=== PATIENT | male | born 1970 | race African-American/Black ===

== ENCOUNTER 2020-01-15 10:39 | Emergency (ER) | payer SELFPAY ==
[2020-01-15] MEDS ORDERED: Lidocaine 1% w/Epinephrine 1:100K 20 ML VIAL ONE (12:00)
== END 2020-01-15 12:27 | disposition home or self-care (01) ==
LOC: ERS 10:39
DX: L72.3 Sebaceous cyst (principal); F17.220 Nicotine dependence, chewing tobacco, uncomplicated; Z79.4 Long term (current) use of insulin
CPT/HCPCS: 10061

== ENCOUNTER 2020-02-02 08:37 | Emergency (ER) | payer SELFPAY ==
[2020-02-02] MEDS ORDERED: Bupivacaine 0.5% 10 ML VIAL ONE (09:10)
== END 2020-02-02 10:06 | disposition home or self-care (01) ==
LOC: ERS 08:37
DX: L03.012 Cellulitis of left finger (principal); E10.9 Type 1 diabetes mellitus without complications; F17.220 Nicotine dependence, chewing tobacco, uncomplicated
CPT/HCPCS: 99283; J3490

== ENCOUNTER 2021-04-24 18:02 | Emergency (ER) | payer SELFPAY | END 2021-04-24 19:46 | disposition home or self-care (01) | LOC: ERS 18:02 | DX: T65.91XA Toxic effect of unspecified substance, accidental (unintentional), initial encounter (principal); H57.89 Other specified disorders of eye and adnexa; E10.9 Type 1 diabetes mellitus without complications; F17.220 Nicotine dependence, chewing tobacco, uncomplicated; Z79.4 Long term (current) use of insulin | CPT/HCPCS: 99283 ==

== ENCOUNTER 2022-08-22 14:07 | Emergency (ER) | payer SELFPAY | END 2022-08-22 15:28 | disposition home or self-care (01) | LOC: ERS 14:07 | DX: L01.00 Impetigo, unspecified (principal); E10.9 Type 1 diabetes mellitus without complications; F17.220 Nicotine dependence, chewing tobacco, uncomplicated | CPT/HCPCS: 99282 ==

== ENCOUNTER 2024-01-05 23:19 | Emergency (ER) | payer SELFPAY ==
[2024-01-06 00:42] LABS: #Basophils 0.03 10x3/uL (0.0-0.2); %Basophils 0.3 % (0.0-1.0); %Eosinophils 0.9 % (0.0-10.0); %Lymphocytes 16.1 % (21.0-51.0); %Monocytes 8.7 % (0.0-10.0); %Neutrophils 73.7 % (42.0-75.0); Hematocrit 39.4 % (42.0-52.0); Hemoglobin 12.7 g/dL (14.0-18.0); Mean Corpuscular HGB CONC 32.2 g/dL (32.0-36.0); Mean Corpuscular Hemoglobin 28.9 pg (27.0-31.0); Mean Corpuscular Volume 89.5 fL (78.0-98.0); Mean Platelet Volume 10.5 fL (7.4-10.4); Platelet Count 280 10x3/uL (130-400); RBC Distribution Width 15.4 % (11.5-14.5)
[2024-01-06 01:05] LABS: Albumin 3.9 g/dL (3.5-5.0)
[2024-01-06 01:07] LABS: Calcium 9.5 mg/dL (7.8-10.44); Chloride 111 mmol/L (98-107); Potassium 4.4 mmol/L (3.5-5.1); Sodium 138 mmol/L (136-145)
[2024-01-06 01:08] LABS: Globulin 4.3 g/dL (2.4-3.5); Glucose 103 mg/dL (70-105); Protein, Total 8.2 g/dL (6.0-8.3)
[2024-01-06 01:09] LABS: Anion Gap 18 mmol/L (10-20); Carbon Dioxide 13 mmol/L (22-29)
[2024-01-06 01:10] LABS: Bilirubin, Total 0.3 mg/dL (0.2-1.2)
[2024-01-06 01:11] LABS: Calc. Creatinine Clearance 0 mL/min (70-130); Estimated GFR 101
[2024-01-06 01:12] LABS: BUN (Urea Nitrogen) 16 mg/dL (8.4-25.7)
[2024-01-06 01:13] LABS: AST (SGOT) 22 U/L (5-34)
[2024-01-06 01:38] LABS: Alkaline Phosphatase 46 U/L (40-110)
[2024-01-06 02:01] LABS: ALT (SGPT) 12 U/L (8-55)
== END 2024-01-06 00:13 | disposition home or self-care (01) ==
LOC: ERS 23:19
DX: L73.2 Hidradenitis suppurativa (principal); F17.220 Nicotine dependence, chewing tobacco, uncomplicated; E10.9 Type 1 diabetes mellitus without complications; Z79.4 Long term (current) use of insulin
CPT/HCPCS: 80053; 83605; 85025; 99283

== ENCOUNTER 2024-02-07 00:48 | Emergency (ER) | payer SELFPAY ==
[2024-02-07] MEDS ORDERED: HYDROcodone/Acetaminophen 5/325 mg Tablet ONE (02:24)
== END 2024-02-07 02:30 | disposition home or self-care (01) ==
LOC: ERS 00:48
DX: S83.92XA Sprain of unspecified site of left knee, initial encounter (principal); E10.9 Type 1 diabetes mellitus without complications; W18.40XA Slipping, tripping and stumbling without falling, unspecified, initial encounter; Y93.01 Activity, walking, marching and hiking; Z79.4 Long term (current) use of insulin